=== PATIENT | female | born 1995 | race Caucasian/White ===

== ENCOUNTER 2018-05-02 20:01 | Emergency (ER) | payer OTHER ==
[~2018-05-02] VITALS: Ht 170.2 cm; Wt 65.8 kg
[~2018-05-02 20:01] MED LIST: BCPILLS PO; [UNRECOGNIZED DRUG - CODE] PEG
[2018-05-02 20:04] VITALS: TEMP 36.9; Ht 170.2 cm; Wt 65.8 kg
[2018-05-02] MEDS ORDERED: LIDOCAINE 1% BUFFERED INJ 20 ML VIAL INFIL ONE (20:30)
[2018-05-02] MEDS ORDERED: CEPH500C2 PO (20:56)
[2018-05-02] MEDS ORDERED: OXYC-737 PO (20:56)
[2018-05-02] MEDS ORDERED: SULF800T23 PO (20:56)
[2018-05-02] MEDS ORDERED: SEPTRA DS HOME PACK 1 EA VIAL PO ONE (21:00)
[2018-05-02] MEDS ORDERED: CEPHALEXIN 500MG HOME PACK 1 EA BTL PO ONE (21:00)
[2018-05-02] MEDS ORDERED: OXYCODONE IR HOME PACK PO ONE (21:00)
[2018-05-02 21:12] VITALS: BP 128/77; PULSE 69; O2SAT 99
--- NOTE | 2018-05-02 22:48 | EMERGENCY ROOM VISIT NOTE ---
ED Visit Note First contact with patient: 20:07 CHIEF COMPLAINT: I have a pimple-like lesion in my right armpit. HISTORY OF PRESENT ILLNESS: Ms. Sorensen is an 22-year-old white female who ambulates into the ED accompanied by her brother and boyfriend complaining of a pimple-like lesion in the right axillary area. Patient reports she noticed a hard tender area in right axillary area for 4 days ago. She reports the initial lesion was very small and then over the last 4 days it is slowly getting larger, more painful and tender. She does not know of any skin injury preceding the redness Currently she describes her pain as a deep achy sensation. She rates her discomfort 7/10. Her pain is nonradiating. Her pain worsens with palpation. She has not identified any alleviating factors related to the pain. She has not taken any medications for pain prior to arrival at the hospital. She reports earlier today the pimple-like lesion popped and she no drainage of purulent material. She denies fevers, chills, sweats, other skin eruptions, other skin color changes, upper respiratory tract symptoms, shortness of breath, decreased appetite, abdominal pain, nausea, vomiting, right upper extremity weakness/ numbness/tingling. REVIEW OF SYSTEMS: As noted above in History of Present Illness; 8 body systems reviewed with the patient and found to be negative unless noted above otherwise. PAST MEDICAL HISTORY: Patient denies. CURRENT MEDICATION: control. ALLERGIES TO MEDICATION: MSG and red dye. SOCIAL HISTORY: Patient is currently employed; she feels safe in her home environment; she denies tobacco use admits to alcohol use. PHYSICAL EXAM: Vital Signs: Date Time Temp Pulse Resp B/P (MAP) Pulse Ox O2 Delivery O2 Flow Rate FiO2 05/02/18 21:12 69 18 128/77 99 Room Air 05/02/18 20:04 36.9 75 18 139/86 100 Room Air General: 22 year-old female in mild distress due to pain, nontoxic appearing, afebrile and hemodynamically stable. Neurological: Awake, alert and oriented to person, place and time. Answering questions appropriately and following commands. Skin: Warm, dry and pink. Right Axillary Area: There is an indurated area in the right axilla which measures about 2.2 cm in diameter. The lesion is minimally fluctuant without pointing or drainage. There is a zone of inflammation around it but no lymphangitis. Thorax: Lungs sounds are clear to auscultation and equal bilaterally with symmetrical chest wall movement. No wheezing, rales or rhonchi. No increased respiratory effort. Abdomen: Flat, soft and nontender. Positive bowel sounds in all quadrants. No guarding or rigidity. ED COURSE: Patient is assessed as noted above. Patient's medication list was reviewed. Incision and Drainage: Verbal consent was obtained after the risks and benefits were explained. The skin was prepped with betadine and a sterile field set. The area surrounding the abscess was anesthetized with 6.3 ml of 1% buffered lidocaine. The abscess cavity was incised with a scalpel. Approximately 1 mL of purulent material was drained from the abscess and more was expressed. Aerobic cultures were obtained and are currently pending. The abscess cavity was sharply dissected with iris scissors to break up loculations and a small amount of additional purulent drainage was expressed. Copious irrigation was performed using sterile saline. The abscess cavity was cleaned out with a cotton tip applicator dipped in Betadine. Hemostasis was achieved. Iodoform gauze packing was inserted into the abscess. A sterile dressing was applied. No complications and the patient tolerated the procedure well. Patient was educated about her condition and instructed on her treatment plan; the verbalized understanding and agreement with this plan. CLINICAL IMPRESSION: Abscess of the right axilla. DISPOSITION: Patient discharged to home in stable condition accompanied by her brother and boyfriend; prior to departure she was reassessed and subjectively reported she was feeling the same. PLAN: Comfort measures, wound care and signs of infection were discussed with the patient. Patient was prescribed Keflex 500 mg 4 times a day and Bactrim DS 2 times a day for 10 days. Patient was placed on a sliding pain medication scale of ibuprofen, acetaminophen and OxyIR; her name was checked on state database and no red flags were noted and she was given appropriate narcotic precautions. Patient was encouraged to follow-up with her PCP or return to the ED for recheck in 36 hours as well as culture results and possible packing removal. Patient was encouraged return the ED for any signs of worsening infection or any new/concerning symptoms.
== END 2018-05-02 21:25 | disposition home or self-care (01) ==
LOC: C.EDB 20:03 → C.EDD 21:25
DX: L02.411 Cutaneous abscess of right axilla (principal)